=== PATIENT | female | born 1985 | race Caucasian/White ===

== ENCOUNTER 2016-09-10 20:40 | Emergency (ER) | payer OTHER ==
[2016-09-10] MEDS ORDERED: DEXAMETHASONE 10 MG/ML VIAL PO STA (21:28)
[2016-09-10] MEDS ORDERED: AMOXICILLIN 250 MG CAPSULE PO STA (21:28)
[2016-09-10] MEDS ORDERED: HYDROcod/ACET 5/325 Prepack 6 PO ONE ×2 (21:28→21:32)
[2016-09-10] MEDS ORDERED: CETIRIZINE 10 MG TABLET PO STA (21:28)
[2016-09-10] MEDS ORDERED: AMOXICILLIN 250 MG CAPSULE PO ONE (21:32)
[2016-09-10] MEDS ORDERED: CHERRY SYRUP 10 ML UDC PO ONE (21:33)
[2016-09-10] MEDS ORDERED: CETIRIZINE 10 MG TABLET ONE (21:33)
[2016-09-10] MEDS ORDERED: DEXAMETHASONE 10 MG/ML VIAL ONE (21:33)
== END 2016-09-10 22:06 | disposition home or self-care (01) ==
DX: H66.001 Acute suppurative otitis media without spontaneous rupture of ear drum, right ear (principal)
CPT/HCPCS: 99283; A9270

== ENCOUNTER 2017-05-14 11:33 | Emergency (ER) | payer OTHER ==
[2017-05-14] MEDS ORDERED: LORazepam 0.5 MG TABLET PO STA (13:46)
[2017-05-14] MEDS ORDERED: SODIUM CHLORIDE 0.9% 1,000 ML IV ONE (13:47)
[2017-05-14] MEDS ORDERED: LORazepam 0.5 MG TABLET ONE (14:33)
--- NOTE | 2017-05-14 15:06 | ED Physician Documentation ---
History of Present Illness - Stated complaint Stated Complaint: DEPRESSION - Chief complaint Chief Complaint: MHE - History obtained from History obtained from: Patient (pt is here for evaluation of anxiety. she states that she has a hx of anxiety and is on zoloft. she states that she woke today having a panic attack. she does not know the trigger. she states that she has been drinking some ETOh over the past couple days because of thanksgiving. senies SI or HI) Review of Systems Constitutional: denies: Fever, Chills Cardiac: denies: Chest pain / pressure, Palpitations Respiratory: denies: Cough, Hemoptysis GI: denies: Abdominal Pain, Nausea, Vomiting, Constipation, Diarrhea : denies: Dysuria, Frequency, Hesitancy Skin: denies: Rash, Lesions Musculoskeletal: denies: Neck pain, Back pain Neurologic: denies: Headache, LOC Psychiatric: reports: Anxiety. 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 : None HEENT: None Psych: Anxiety Musculoskeletal: None Derm: None - Past Surgical History Past Surgical History: Yes General: Other - Present Medications Home Medications: Ambulatory Orders Medication Instructions Recorded Confirmed Cyclobenzaprine [Flexeril] 10 mg PO TID PRN #10 tablet 03/07/16 HYDROcod/ACETAM 5/325 [[place] 5/325] 1 - 2 ea PO Q6H PRN #10 tablet 03/07/16 Benzonatate [Tessalon] 100 mg PO TID PRN #20 capsule 05/01/16 Fluticasone [Flonase] 1 sprays SRIRAM BID PRN #1 bottle 05/01/16 guaiFENesin/DEXTROMETHORPHAN 10 ml PO Q6H PRN #120 ml 05/01/16 [Robitussin Dm] Amoxicillin 500 mg PO TID #20 capsule 09/10/16 Cetirizine [ZyrTEC] 10 mg PO DAILY #15 tablet 09/10/16 Hydrocodone/Acetaminophen [[place] 1 each PO Q6H PRN #12 tablet 09/10/16 5-325 Tablet] LORazepam [Ativan] 0.5 mg PO Q6H PRN #7 tablet 05/14/17 - Allergies Allergies/Adverse Reactions: Allergies Allergy/AdvReac Type Severity Reaction Status Date / Time No Known Drug Allergies Allergy Verified 05/14/17 12:00 - Social History Does the pt smoke?: No Smoking Status: Never smoker Does the pt drink ETOH?: Yes Does the pt have substance abuse?: No - Immunizations Immunizations are current?: Yes - POLST Patient has POLST: No PD ED PE NORMAL - Vitals Vital signs reviewed: Yes - General General: Alert and oriented X 3, No acute distress, Well developed/nourished - HEENT HEENT: Moist mucous membranes - Cardiac Cardiac: RRR, No murmur, No gallop - Respiratory Respiratory: No respiratory distress, Clear bilaterally - Abdomen Abdomen: Normal bowel sounds, Soft, Non tender, Non distended - Derm Derm: Normal color, No rash - Extremities Extremities: No deformity, No edema - Neuro Neuro: Alert and oriented X 3, No sensory deficit, Normal speech Eye Opening: Spontaneous Motor: Obeys Commands Verbal: Oriented GCS Score: 15 Results - Vitals Vitals: Vital Signs - 24 hr 05/14/17 05/14/17 05/14/17 11:55 13:21 14:30 Temperature 36.8 C Heart Rate 100 97 99 Respiratory 18 16 16 Rate Blood Pressure 122/82 H 112/70 120/77 O2 Saturation 100 100 100 Oxygen O2 Source Room air PD MEDICAL DECISION MAKING - ED course Complexity details: reviewed old records, d/w patient ED course: pt looks well. does not appear to be anxious in the room. IV provided because the pt states that her anxiety is worse with dehydration. she was given oral ativan in the ER and she states that has helped. she denies SI or HI. will send home with ativan and she will follow up with her PCM on tuesday. Departure - Departure Disposition: , Self Care Clinical Impression: Anxiety Condition: Good Instructions: ED Panic Attack Follow-Up: primary,care provider [Other] Prescriptions: LORazepam [Ativan] 0.5 mg PO Q6H PRN #7 tablet PRN Reason: Anxiety Comments: return to the ER for any new or worsening symptoms, thoughts of hurting yourself or any other concerns. Follow up with your primary care provider next week.
[2017-05-14 15:20] VITALS: BP 123/78
== END 2017-05-14 15:20 | disposition home or self-care (01) ==
LOC: ED 11:33
DX: F41.9 Anxiety disorder, unspecified (principal)
CPT/HCPCS: 99283; A9270

== ENCOUNTER 2018-12-01 08:00 | Outpatient (CLI) | payer MEDICAID ==
[2018-12-01 21:51] LABS: CANDIDA GROUP DNA NEGATIVE (NEGATIVE); CANDIDA KRUSEI DNA NEGATIVE (NEGATIVE); TRICHOMONAS VAGINALIS DNA NEGATIVE (NEGATIVE)
== END 2018-12-01 23:59 | disposition home or self-care (01) ==
LOC: LAB.R 08:00
PROVIDERS: ATTEND Obstetrics & Gynecology
DX: N89.8 Other specified noninflammatory disorders of vagina (principal)
CPT/HCPCS: 87661; 87801

== ENCOUNTER 2018-12-23 13:14 | Emergency (ER) | payer MEDICAID ==
[2018-12-23 13:22] VITALS: BP 114/70
--- NOTE | 2018-12-23 13:30 | ED Physician Documentation ---
PD HPI LOWER EXT INJURY - Stated complaint Stated Complaint: LEFT ANKLE INJURY - Chief complaint Chief Complaint: Ext Problem - History obtained from History obtained from: Patient - History of Present Illness PD HPI LOW EXT INJURY LOCATION: Left (She is training for marathon and has progressive left ankle pain laterally without specific injury. 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 HEENT: None Psych: Anxiety Musculoskeletal: None Derm: None - Past Surgical History Past Surgical History: Yes General: Other - Present Medications Home Medications: Ambulatory Orders Medication Instructions Recorded Confirmed Cyclobenzaprine [Flexeril] 10 mg PO TID PRN #10 tablet 03/07/16 HYDROcod/ACETAM 5/325 [[place] 5/325] 1 - 2 ea PO Q6H PRN #10 tablet 03/07/16 Benzonatate [Tessalon] 100 mg PO TID PRN #20 capsule 05/01/16 Fluticasone [Flonase] 1 sprays SRIRAM BID PRN #1 bottle 05/01/16 guaiFENesin/DEXTROMETHORPHAN 10 ml PO Q6H PRN #120 ml 05/01/16 [Robitussin Dm] Amoxicillin 500 mg PO TID #20 capsule 09/10/16 Cetirizine [ZyrTEC] 10 mg PO DAILY #15 tablet 09/10/16 Hydrocodone/Acetaminophen [[place] 1 each PO Q6H PRN #12 tablet 09/10/16 5-325 Tablet] LORazepam [Ativan] 0.5 mg PO Q6H PRN #7 tablet 05/14/17 Ibuprofen [Motrin] 800 mg PO Q8H PRN #30 tablet 12/23/18 - Allergies Allergies/Adverse Reactions: Allergies Allergy/AdvReac Type Severity Reaction Status Date / Time No Known Drug Allergies Allergy Verified 12/23/18 13:22 - Social History Does the pt smoke?: No Smoking Status: Never smoker Does the pt drink ETOH?: Yes Does the pt have substance abuse?: No - Immunizations Immunizations are current?: Yes - POLST Patient has POLST: No PD ED PE NORMAL - Vitals Vital signs reviewed: Yes - General General: Alert and oriented X 3, No acute distress - Extremities Extremities: Other (Focally tender over the left peroneal tendon without bony tenderness. She is pain with inversion and eversion of the ankle. There is no warmth or redness or deformity. No calf pain or swelling.) - Neuro Neuro: Alert and oriented X 3, Normal speech Results - Vitals Vitals: Vital Signs - 24 hr 12/23/18 13:19 Temperature 36.0 C L Heart Rate 88 Respiratory 19 Rate Blood Pressure 114/70 O2 Saturation 97 Oxygen O2 Source Room air - Rads (name of study) L ankle 3v Radiology: EMP read contemporaneously (normal) Departure - Departure Disposition: 01 Home, Self Care Clinical Impression: Peroneal tendinitis of left lower leg Condition: Good Record reviewed to determine appropriate education?: Yes Health Concerns: ankle pain Plan of Treatment: rest, physical therapy, motrin Care Goals: improve pain and function Assessment: as above Instructions: Tendonitis and Tenosynovitis Prescriptions: Ibuprofen [Motrin] 800 mg PO Q8H PRN #30 tablet PRN Reason: PAIN &/OR FEVER
--- NOTE | 2018-12-23 13:51 | XRAY Report ---
Reason: ankle pain Procedure Date: 12/23/2018 Accession Number: [id number] / [id number] Procedure: XR - Ankle 3 View LT CPT Code: FULL RESULT: EXAM: LEFT ANKLE RADIOGRAPHY EXAM DATE: 12/23/2018 01:42 PM. CLINICAL HISTORY: Ankle pain after running COMPARISON: None. TECHNIQUE: 3 views. FINDINGS: Bones: Normal. No fractures or bone lesions. Joints: Normal. No effusion. No subluxations. The ankle mortise is normally aligned. Soft Tissues: Normal. No soft tissue swelling. IMPRESSION: Normal ankle radiography. RADIA
== END 2018-12-23 14:06 | disposition home or self-care (01) ==
LOC: ED 13:14
DX: M76.72 Peroneal tendinitis, left leg (principal)
CPT/HCPCS: 99283

== ENCOUNTER 2020-03-18 22:58 | Emergency (ER) | payer MEDICAID, OTHER ==
[2020-03-18 23:06] VITALS: BP 134/89
--- NOTE | 2020-03-18 23:11 | ED Physician Documentation ---
History of Present Illness - Stated complaint Stated Complaint: TOOTH PX - Chief complaint Chief Complaint: Heent - History obtained from History obtained from: Patient - Additonal information Additional information: 34-year-old female presents with left mandibular posterior molar pain. Reports she is scheduled to see her oral surgeon tomorrow. Denies any other complaints Review of Systems Constitutional: reports: Reviewed and negative Eyes: reports: Reviewed and negative Ears: reports: Reviewed and negative Nose: reports: Reviewed and negative Throat: reports: Dental pain / toothache Cardiac: reports: Reviewed and negative Respiratory: reports: Reviewed and negative GI: reports: Reviewed and negative : reports: Reviewed and negative Skin: reports: Reviewed and negative Musculoskeletal: reports: Reviewed and negative Neurologic: reports: Reviewed and negative Psychiatric: reports: Reviewed and negative Endocrine: reports: Reviewed and negative Immunocompromised: reports: Reviewed and negative PD PAST MEDICAL HISTORY - Past Medical History Cardiovascular: None Respiratory: None Endocrine/Autoimmune: None GI: None 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 : None HEENT: None Psych: Anxiety Musculoskeletal: None Derm: None - Past Surgical History Past Surgical History: Yes General: Other - Present Medications Home Medications: Ambulatory Orders Medication Instructions Recorded Confirmed Cyclobenzaprine [Flexeril] 10 mg PO TID PRN #10 tablet 03/07/16 HYDROcod/ACETAM 5/325 [[place] 5/325] 1 - 2 ea PO Q6H PRN #10 tablet 03/07/16 Benzonatate [Tessalon] 100 mg PO TID PRN #20 capsule 05/01/16 Fluticasone [Flonase] 1 sprays SRIRAM BID PRN #1 bottle 05/01/16 guaiFENesin/DEXTROMETHORPHAN 10 ml PO Q6H PRN #120 ml 05/01/16 [Robitussin Dm] Amoxicillin 500 mg PO TID #20 capsule 09/10/16 Cetirizine [ZyrTEC] 10 mg PO DAILY #15 tablet 09/10/16 Hydrocodone/Acetaminophen [[place] 1 each PO Q6H PRN #12 tablet 09/10/16 5-325 Tablet] LORazepam [Ativan] 0.5 mg PO Q6H PRN #7 tablet 05/14/17 Ibuprofen [Motrin] 800 mg PO Q8H PRN #30 tablet 12/23/18 Hydrocodone/Acetaminophen [[place] 1 each PO Q6HR PRN #7 tablet 03/18/20 5-325 Tablet] Penicillin V Potassium 500 mg PO QID 7 Days #28 tablet 03/18/20 - Allergies Allergies/Adverse Reactions: Allergies Allergy/AdvReac Type Severity Reaction Status Date / Time pseudoephedrine AdvReac Unknown Verified 03/18/20 23:06 - Social History Does the pt smoke?: No Smoking Status: Never smoker Does the pt drink ETOH?: Yes Does the pt have substance abuse?: No - Immunizations Immunizations are current?: Yes - POLST Patient has POLST: No PD ED PE NORMAL - Vitals Vital signs reviewed: Yes - General General: Alert and oriented X 3, No acute distress, Well developed/nourished - HEENT HEENT: Atraumatic, PERRL, Ears normal, Moist mucous membranes, Pharynx benign, Dentition benign (Tenderness over tooth #17 no obvious abscess for drainage no signs of ANUG or Erich's), Other - Neck Neck: Supple, no meningeal sign, No adenopathy - Cardiac Cardiac: RRR, No murmur - Respiratory Respiratory: Clear bilaterally - Abdomen Abdomen: Normal bowel sounds, Soft, Non tender, Non distended - Derm Derm: Warm and dry - Extremities Extremities: No deformity - Neuro Neuro: Alert and oriented X 3 - Psych Psych: Normal mood, Normal affect PD ED PE EXPANDED - HEENT HEENT Visual: 1 - tenderness Results - Vitals Vitals: Vital Signs - 24 hr 03/18/20 23:04 Temperature 37.1 C Heart Rate 86 Respiratory 17 Rate Blood Pressure 134/89 H O2 Saturation 100 Oxygen O2 Source Room air PD MEDICAL DECISION MAKING - ED course Complexity details: reviewed results, re-evaluated patient, d/w patient ED course: 34-year-old female with likely dental infection. Will and treat empirically with penicillin and refer to oral surgery today as she has a scheduled appointment already. Departure - Departure Disposition: 01 Home, Self Care Clinical Impression: Dental infection Condition: Stable Instructions: ED Tooth Pain Follow-Up: Rosalino Franco DDS [Provider Admit Priv/Credential] - Tomorrow Prescriptions: Hydrocodone/Acetaminophen [[place] 5-325 Tablet] 1 each PO Q6HR PRN #7 tablet PRN Reason: Pain Penicillin V Potassium 500 mg PO QID 7 Days #28 tablet Comments: take antibiotics as directed. follow up with your dental provider tomorrow as scheduled. Discharge Date/Time: 03/18/20 23:31
[2020-03-18] MEDS ORDERED: HYDROcod/ACETAM 5/325 MG TABLET PO STA (23:24)
[2020-03-18] MEDS ORDERED: PENICILLIN VK 250 MG TABLET PO STA (23:24)
== END 2020-03-18 23:31 | disposition home or self-care (01) ==
LOC: ED 22:58
DX: K04.7 Periapical abscess without sinus (principal)
CPT/HCPCS: 99282; 99283; A9270

== ENCOUNTER 2020-07-14 10:49 | Outpatient (CLI) | payer OTHER ==
--- NOTE | 2020-07-14 11:11 | XRAY Report ---
PROCEDURE: Chest 2 View X-Ray INDICATIONS: ASTHMA EXACERBATION TECHNIQUE: 2 view(s) of the chest. COMPARISON: None. FINDINGS: Surgical changes and devices: None. Lungs and pleura: No pleural effusions or pneumothorax. Lungs are clear. Mediastinum: Mediastinal contours are normal. Heart size is normal. Bones and chest wall: No suspicious bony abnormalities. Soft tissues appear unremarkable. IMPRESSION: No acute cardiopulmonary process demonstrated radiographically. Reviewed by: Lio Blakely MD on 07/14/2020 11:09 AM [facility] Approved by: Lio Blakely MD on 07/14/2020 11:09 AM [facility] Station ID: [id number]
== END 2020-07-14 10:50 | disposition home or self-care (01) ==
LOC: DI.N 10:49
PROVIDERS: ATTEND Nurse Practitioner
DX: J45.901 Unspecified asthma with (acute) exacerbation (principal); Z20.822 Contact with and (suspected) exposure to COVID-19

== ENCOUNTER 2020-07-30 08:00 | Outpatient (CLI) | payer OTHER ==
[2020-07-30 18:44] LABS: ALBUMIN 4.2 g/dL (3.2-5.5); ALBUMIN/GLOBULIN RATIO 1.3 (1.0-2.2); ALKALINE PHOSPHATASE 75 IU/L (42-121); ALT ALANINE AMINOTRANSFERASE 26 IU/L (10-60); AST ASPARTATE AMINOTRANSFERASE 23 IU/L (10-42); BILIRUBIN,TOTAL 0.3 mg/dL (0.2-1.0); BUN - BLOOD UREA NITROGEN 10 mg/dL (6-20); CARBON DIOXIDE - CO2 25 mmol/L (21-32); CHLORIDE 105 mmol/L (101-111); CHOL/HDL RATIO 3.9 (<4.4); CHOLESTEROL 190 mg/dL; CREATININE 0.7 mg/dL (0.4-1.0); GLUCOSE 93 mg/dL (70-100); HDL CHOLESTEROL 49 mg/dL; LDL CHOLESTEROL,CALCULATED 117 mg/dL; LDL/HDL RATIO 2.4 (<4.4); TOTAL PROTEIN 7.5 g/dL (6.7-8.2); VLDL CHOLESTEROL 24 mg/dL
[2020-07-30 20:05] LABS: HEMOGLOBIN A1c% 5.2 % (4.27-6.07)
== END 2020-07-30 23:59 | disposition home or self-care (01) ==
LOC: LAB.WCP 08:00
PROVIDERS: ATTEND Obstetrics & Gynecology
DX: E66.9 Obesity, unspecified (principal)
CPT/HCPCS: 36415; 80053; 80061; 82947; 83036; 83721; 84443

== ENCOUNTER 2020-11-07 08:00 | Outpatient (CLI) | payer OTHER | END 2020-11-07 23:59 | disposition home or self-care (01) | LOC: LAB.N 08:00 | PROVIDERS: ATTEND Family Medicine | DX: J45.901 Unspecified asthma with (acute) exacerbation (principal); Z20.822 Contact with and (suspected) exposure to COVID-19 ==

== ENCOUNTER 2020-11-13 15:02 | Outpatient (CLI) | payer OTHER ==
--- NOTE | 2020-11-13 15:27 | XRAY Report ---
PROCEDURE: Chest 2 View X-Ray INDICATIONS: Pleuritic chest pain TECHNIQUE: 2 view(s) of the chest. COMPARISON: None. FINDINGS: Surgical changes and devices: None. Lungs and pleura: No pleural effusions or pneumothorax. Lungs are clear. Mediastinum: Mediastinal contours are normal. Heart size is normal. Bones and chest wall: No suspicious bony abnormalities. Soft tissues appear unremarkable. IMPRESSION: No acute cardiopulmonary process demonstrated radiographically. Reviewed by: Lio Blakely MD on 11/13/2020 3:25 PM PDT Approved by: Lio Blakely MD on 11/13/2020 3:25 PM PDT Station ID: [id number]
== END 2020-11-13 23:59 | disposition home or self-care (01) ==
LOC: DI.N 15:02
PROVIDERS: ATTEND Family Medicine
DX: R07.1 Chest pain on breathing (principal); Z20.822 Contact with and (suspected) exposure to COVID-19

== ENCOUNTER 2021-06-11 17:49 | Outpatient (CLI) | payer OTHER ==
--- NOTE | 2021-06-11 20:56 | XRAY Report ---
PROCEDURE: Wrist 3 View RT INDICATIONS: RIGHT WRIST PAIN TECHNIQUE: 3 views of the wrist were acquired. COMPARISON: None FINDINGS: Bones: No fractures or dislocations. No suspicious bony lesions. Soft tissues: No suspicious soft tissue calcifications. IMPRESSION: No acute finding. Reviewed by: Lio Blakely MD on 06/11/2021 8:54 PM PST Approved by: Lio Blakely MD on 06/11/2021 8:54 PM PST Station ID: [id number]
== END 2021-06-11 23:59 | disposition home or self-care (01) ==
LOC: DI.N 17:49
PROVIDERS: ATTEND Physician Assistant
DX: M25.531 Pain in right wrist (principal)

== ENCOUNTER 2021-08-07 08:12 | Outpatient (CLI) | payer OTHER ==
[2021-08-07 12:38] LABS: BASOPHILS % (AUTO) 0.5 %; EOSINOPHILS # (AUTO) 0.1 10^3/uL (0.0-0.7); EOSINOPHILS % (AUTO) 1.2 %; HCT - HEMATOCRIT 42.6 % (37.0-47.0); HGB - HEMOGLOBIN 14.2 g/dL (12.0-16.0); LYMPHOCYTES # (AUTO) 1.9 10^3/uL (1.5-3.5); LYMPHOCYTES % (AUTO) 32.2 %; MEAN CORPUSCULAR HGB CONC 33.3 g/dL (32.0-36.0); MEAN CORPUSCULAR VOLUME 90.1 fL (81.0-99.0); MEAN PLATELET VOLUME 11.8 fL (7.9-10.8); MONOCYTES # (AUTO) 0.3 10^3/uL (0.0-1.0); MONOCYTES % (AUTO) 5.9 %; NEUTROPHILS # (AUTO) 3.5 10^3/uL (1.5-6.6); PLT - PLATELET COUNT 242 10^3/uL (130-450); RED BLOOD COUNT 4.73 10^6/uL (4.20-5.40); RED CELL DISTRIBUTION WIDTH 12.7 % (12.0-15.0); WHITE BLOOD COUNT 5.8 x10^3/uL (4.8-10.8)
[2021-08-07 13:22] LABS: ALBUMIN 4.3 g/dL (3.2-5.5); ALBUMIN/GLOBULIN RATIO 1.1 (1.0-2.2); ALKALINE PHOSPHATASE 77 IU/L (42-121); ALT ALANINE AMINOTRANSFERASE 45 IU/L (10-60); AST ASPARTATE AMINOTRANSFERASE 35 IU/L (10-42); BILIRUBIN,TOTAL 0.9 mg/dL (0.2-1.0); BUN - BLOOD UREA NITROGEN 11 mg/dL (6-20); CALCIUM 9.1 mg/dL (8.5-10.3); CARBON DIOXIDE - CO2 25 mmol/L (21-32); CHLORIDE 103 mmol/L (101-111); CHOL/HDL RATIO 3.5 (<4.4); CHOLESTEROL 198 mg/dL; CREATININE 0.7 mg/dL (0.4-1.0); GFR - MDRD 95 (>89); GLUCOSE 106 mg/dL (70-100); HDL CHOLESTEROL 57 mg/dL; LDL CHOLESTEROL,CALCULATED 118 mg/dL; LDL/HDL RATIO 2.1 (<4.4); POTASSIUM 3.8 mmol/L (3.5-5.0); SODIUM 136 mmol/L (135-145); TOTAL PROTEIN 8.1 g/dL (6.7-8.2); TRIGLYCERIDES 116 mg/dL; VLDL CHOLESTEROL 23 mg/dL
[2021-08-07 13:26] LABS: THYROID STIMULATING HORMONE 2.38 uIU/mL (0.34-5.60)
[2021-08-07 13:33] LABS: ESTIMATED AVERAGE GLUCOSE 100 mg/dL (70-100); HEMOGLOBIN A1c% 5.1 % (4.27-6.07)
== END 2021-08-07 08:13 | disposition home or self-care (01) ==
LOC: LAB.N 08:12
PROVIDERS: ATTEND Physician Assistant
DX: R53.83 Other fatigue (principal); E55.9 Vitamin D deficiency, unspecified; Z13.1 Encounter for screening for diabetes mellitus; Z13.29 Encounter for screening for other suspected endocrine disorder
CPT/HCPCS: 36415; 80053; 80061; 82306; 83036; 83721; 84443; 85025

== ENCOUNTER 2021-10-19 08:00 | Outpatient (CLI) | payer OTHER | END 2021-10-19 08:01 | disposition home or self-care (01) | LOC: LAB.N 08:00 | PROVIDERS: ATTEND Physician Assistant Medical | DX: R05.9 Cough, unspecified (principal); Z20.822 Contact with and (suspected) exposure to COVID-19 ==